=== PATIENT | female | born 1990 | race Caucasian/White ===

== ENCOUNTER 2019-06-06 12:37 | Emergency (ER) | payer BC ==
[2019-06-06] MEDS ORDERED: KETOROLAC TROMETHAMINE INJ/PF 30 MG/1 ML SDV IM ONE (13:21)
--- NOTE | 2019-06-06 13:25 | ER Document Report ---
HPI - HPI Time Seen by Provider: 06/06/19 13:13 Pain Level: 3 Context: Patient is a 29-year-old female who presents to the emergency department with a chief complaint of right ear pain and sore throat. Patient reports she had a sore throat for about 2 days with a runny nose. Patient denies cough, denies fever. Patient reports she has had nausea without vomiting. Patient reports 3 episodes of diarrhea in the past 24 hours. Patient reports she was recently exposed to influenza. Patient also reports having her right day for pierced 3 weeks ago. Patient reports about 1 week ago she developed redness to the site and drainage that is yellow. Patient reports increased redness to the right ear. Patient denies pain inside the ear. Patient also reports a bloody drainage. 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 - CONSTITUTIONAL Constitutional: DENIES: Fever, Chills - REPRODUCTIVE Reproductive: DENIES: : Past Medical History - General Information source: Patient - Social History Smoking Status: Never Smoker Chew tobacco use (# tins/day): No Frequency of alcohol use: None Drug Abuse: None Lives with: Family Family History: None Patient has suicidal ideation: No Patient has homicidal ideation: No - Past Medical History Cardiac Medical History: Reports: None Pulmonary Medical History: Reports: None EENT Medical History: Reports: None Neurological Medical History: Reports: None Endocrine Medical History: Reports: None Renal/ Medical History: Reports: None Malignancy Medical History: Reports: None GI Medical History: Reports: None Musculoskeletal Medical History: Reports None Skin Medical History: Reports None Psychiatric Medical History: Reports: None Traumatic Medical History: Reports: None Infectious Medical History: Reports: None Surgical Hx: Negative Vertical Provider Document - CONSTITUTIONAL Agree With Documented VS: Yes Exam Limitations: No Limitations General Appearance: No Apparent Distress - INFECTION CONTROL TRAVEL OUTSIDE OF THE [place] IN LAST 30 DAYS: No - HEENT HEENT: Atraumatic, Normocephalic, PERRLA Notes: Patient has a right daith pierced. The jewelry is intact. There is a small amount of yellow/bloody drainage on the outside of the piercing. Patient does have some erythema noted to the right external ear. External ear is tender to touch. Bilateral TMs pearly sosa without bulging, effusion, erythema. Tonsils and pharynx slightly erythematous without edema. Uvula is midline. - NECK Neck: Normal Inspection Notes: No cervical lymphadenopathy. - RESPIRATORY Respiratory: Breath Sounds Normal, No Respiratory Distress - CARDIOVASCULAR Cardiovascular: Regular Rate, Regular Rhythm - P - GI/ABDOMEN Gastrointestinal: Abdomen Soft, Abdomen Non-Tender, Normal Bowel Sounds - MUSCULOSKELETAL/EXTREMETIES Musculoskeletal/Extremeties: FROM - NEURO Level of Consciousness: Awake, Alert, Appropriate - DERM Integumentary: Warm, Dry Course - Re-evaluation Re-evalutation: 06/06/19 13:32 Patient's initial vital signs did show tachycardia of 120. I did recheck this in triage and it was 113. Patient nontoxic-appearing in no acute distress. We will give patient medication for her discomfort. Will reevaluate. 06/06/19 15:10 Patient's heart rate has improved to 108. Patient nontoxic-appearing. Will give antibiotic for right external ear infection due to the piercing. Patient given strict return precautions. - Vital Signs Vital signs: Temp Pulse Resp BP Pulse Ox 99.4 F 120 H 16 149/86 H 99 06/06/19 12:46 06/06/19 12:46 06/06/19 12:46 06/06/19 12:46 06/06/19 12:46 Discharge - Discharge Clinical Impression: Sore throat (viral), Infection of right ear Condition: Stable Disposition: HOME, SELF-CARE Additional Instructions: *Today you are seen the emergency department for sore throat. Your influenza and strep test were negative. This could be due to a viral illness. Please continue to push fluids to stay hydrated. Take Tylenol and ibuprofen as needed for pain or fever. Please return the emergency department if you develop any difficulty breathing or swelling to your throat. In regards to the possible infection to your right ear I am placing you on Keflex. This is an oral antibiotic. Please take this as prescribed. Please use warm compresses to the site and continue to clean with the saline. Please monitor the site for worsening redness, increased drainage. Prescriptions: Cephalexin Monohydrate [Keflex 500 mg Capsule] 500 mg PO Q6H 5 Days capsule Forms: Return to Work Referrals: [facility] [Provider Group] - Follow up as needed
[2019-06-06 14:01] LABS: A TYPE INFLUENZA AG NEGATIVE (NEGATIVE); B INFLUENZA AG NEGATIVE (NEGATIVE)
[2019-06-06 15:04] VITALS: BP 132/82
== END 2019-06-06 15:18 | disposition home or self-care (01) ==
LOC: ER 12:37
DX: J02.9 Acute pharyngitis, unspecified (principal); L08.89 Other specified local infections of the skin and subcutaneous tissue; H92.01 Otalgia, right ear
CPT/HCPCS: 99283; 96372; 87070; 87880; 87077; 87804; J1885

== ENCOUNTER 2019-07-25 22:06 | Emergency (ER) | payer BC, MEDICAID ==
--- NOTE | 2019-07-25 23:00 | ER Document Report ---
ED Medical Screen (RME) - General Chief Complaint: Cold Symptoms Stated Complaint: COLD SYMPTOMS,VOMITING Notes: Patient is a 29-year-old white female with no significant past medical history presents to the emergency department the chief complaint of cough for the past 2 days. States is dry in nature. States associated with no other symptoms. Denies any known sick contacts or recent travel. Denies fever, nausea vomiting or diarrhea, chills or night sweats. No shortness of breath. I have treated and performed a rapid initial assessment of this patient. A comprehensive ED assessment and evaluation of the patient, analysis of test results and completion of medical decision making process will be conducted by additional ED providers. PHYSICAL EXAMINATION: GENERAL: Well-appearing, well-nourished and in no acute distress. A&Ox4. Answers questions appropriately. TRAVEL OUTSIDE OF THE [place] IN LAST 30 DAYS: No - Related Data Allergies/Adverse Reactions: No Known Allergies Allergy (Verified 07/25/19 22:55) Past Medical History - Social History Chew tobacco use (# tins/day): No Frequency of alcohol use: None Drug Abuse: None Pulmonary Medical History: Reports: Hx Asthma - as a child Past Surgical History: Reports: Hx Cholecystectomy, Hx Genitourinary Surgery - fallopian tube removed, Hx Tonsillectomy Physical Exam - Vital signs Vitals: Temp Pulse Resp BP Pulse Ox 98.6 F 101 H 18 134/87 H 96 07/25/19 22:36 07/25/19 22:36 07/25/19 22:36 07/25/19 22:36 07/25/19 22:36 Course - Vital Signs Vital signs: Temp Pulse Resp BP Pulse Ox 98.6 F 101 H 18 134/87 H 96 07/25/19 22:36 07/25/19 22:36 07/25/19 22:36 07/25/19 22:36 07/25/19 22:36
--- NOTE | 2019-07-25 23:41 | RADIOLOGY REPORT (SQ) ---
EXAM DESCRIPTION: XR CHEST 2 VIEWS COMPLETED DATE/TME: 07/25/2019 22:59 CLINICAL INDICATION: 39-year-old female with cough. TECHNIQUE: Two-view, PA and lateral projections of the chest were obtained. COMPARISON: None. FINDINGS: Unremarkable cardiac and mediastinal silhouette. Heart size is normal. Opacification of the LEFT lower lobe concerning for consolidation/pneumonia. Low lung volumes otherwise grossly clear without focal opacity, pneumothorax or pleural effusions. The visualized bones are within normal limits. IMPRESSION: Opacification of the LEFT lower lobe concerning for consolidation/pneumonia.
[2019-07-26 00:16] LABS: A TYPE INFLUENZA AG NEGATIVE (NEGATIVE); B INFLUENZA AG NEGATIVE (NEGATIVE)
--- NOTE | 2019-07-26 01:21 | ER Document Report ---
ED General - General Chief Complaint: Cold Symptoms Stated Complaint: COLD SYMPTOMS,VOMITING Time Seen by Provider: 07/26/19 01:20 Mode of Arrival: Ambulatory Information source: Patient Notes: Patient is a 29-year-old female presenting to the emergency department chief complaint of cold/flulike symptoms. Patient states is been ongoing for 2 days. 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 Patient denies fevers or chills no nausea vomiting or diarrhea. Patient has not tried any [id number] medications. Patient is not traveled anywhere recently. TRAVEL OUTSIDE OF THE [place] IN LAST 30 DAYS: No - HPI Onset: Yesterday Onset/Duration: Gradual, Persistent Quality of pain: Achy Severity: Mild Pain Level: 1 Associated symptoms: Nonproductive cough, Sore throat Exacerbated by: Denies Relieved by: Denies Similar symptoms previously: No Recently seen / treated by doctor: No - Related Data Allergies/Adverse Reactions: No Known Allergies Allergy (Verified 07/25/19 22:55) Past Medical History - General Information source: Patient - Social History Smoking Status: Never Smoker Chew tobacco use (# tins/day): No Frequency of alcohol use: None Drug Abuse: None Family History: None Patient has suicidal ideation: No Patient has homicidal ideation: No Pulmonary Medical History: Reports: Hx Asthma - as a child Past Surgical History: Reports: Hx Cholecystectomy, Hx Genitourinary Surgery - fallopian tube removed, Hx Tonsillectomy Review of Systems - Review of Systems Notes: REVIEW OF SYSTEMS: CONSTITUTIONAL : Per HPI EENT: Denies eye, ear, throat, or mouth pain or symptoms. Denies nasal or sinus congestion. CARDIOVASCULAR: Denies chest pain. RESPIRATORY: Per HPI GASTROINTESTINAL: Denies abdominal pain. Denies nausea, vomiting, or diarrhea. Denies constipation. GENITOURINARY: Denies difficulty urinating, painful urination, burning, frequency, or blood in urine. MUSCULOSKELETAL: Denies neck or back pain or joint pain or swelling. SKIN: Denies rash or skin lesions. HEMATOLOGIC : Denies easy bruising or bleeding. NEUROLOGICAL: Denies altered mental status or loss of consciousness. Denies headache. Denies weakness or paralysis or loss of use of either side. Denies problems with gait or speech. Denies sensory or motor loss. PSYCHIATRIC: Denies suicidal or homicidal ideations 10 Systems are negative unless otherwise specified above Physical Exam - Vital signs Vitals: Temp Pulse Resp BP Pulse Ox 98.6 F 101 H 18 134/87 H 96 07/25/19 22:36 07/25/19 22:36 07/25/19 22:36 07/25/19 22:36 07/25/19 22:36 - Notes Notes: PHYSICAL EXAMINATION: GENERAL: Well-appearing, well-nourished and in no acute distress. HEAD: Atraumatic, normocephalic. EYES: Pupils equal round and reactive to light, extraocular movements intact, sclera anicteric, conjunctiva are normal. ENT: nares patent, oropharynx clear without exudates. Minimal erythema to the posterior pharynx moist mucous membranes. NECK: Normal range of motion, supple without lymphadenopathy, no appreciable JVD LUNGS: Lungs clear to auscultation bilaterally and equal. No wheezes rales or rhonchi. HEART: Regular rate and rhythm without murmurs ABDOMEN: Soft, nontender, normal bowel sounds. No guarding, no rebound. No masses appreciated. EXTREMITIES: Active full range of motion, no pitting or edema. No cyanosis. 2+ pulses x4 NEUROLOGICAL: No focal neurological deficits. Moves all extremities spontaneously and on command. SKIN: Warm, Dry, and intact. Normal turgor, no rashes or lesions noted. Course - Re-evaluation Re-evalutation: 07/26/19 01:21 I have reviewed laboratory and radiologic results with the patient. Patient is agreeable with conservative management for cold/viral syndrome. Patient will be given initial dose of guaifenesin in the emergency department and a prescription for same. Patient is discharged home in stable condition. 07/26/19 01:35 - Vital Signs Vital signs: Temp Pulse Resp BP Pulse Ox 98.6 F 101 H 18 134/87 H 96 07/25/19 22:36 07/25/19 22:36 07/25/19 22:36 07/25/19 22:36 07/25/19 22:36 - Diagnostic Test Radiology reviewed: Reports reviewed Discharge - Discharge Clinical Impression: Viral syndrome, Cough Condition: Stable Disposition: HOME, SELF-CARE Instructions: Viral Syndrome ([facility]), Fever ([facility]), Acetaminophen Additional Instructions: Please utilize Tylenol Motrin for fevers aches and pains, take your cough syrup as prescribed. Try increasing your rest and fluids over the next several days. Follow-up with your primary care provider as needed or return to the emergency department for worsening symptoms. Prescriptions: Guaifenesin [Adult Tussin Chest Congestion] 100 mg PO Q4 PRN #120 liquid PRN Reason: Forms: Return to Work
[2019-07-26] MEDS ORDERED: GUAIFENESIN SYRP 200 MG/10 ML UDC PO ONE (01:31)
[2019-07-26 01:48] VITALS: BP 133/73
== END 2019-07-26 01:50 | disposition home or self-care (01) ==
LOC: ER 22:06
DX: B34.9 Viral infection, unspecified (principal); R05 Cough; J02.9 Acute pharyngitis, unspecified
CPT/HCPCS: 71046; 87804; 99283

== ENCOUNTER 2019-07-27 16:17 | Emergency (ER) | payer BC ==
[2019-07-27] MEDS ORDERED: NORMAL SALINE 1000 ML 1,000 ML IV ONE (16:47)
[2019-07-27] MEDS ORDERED: ACETAMINOPHEN 325 MG TABLET PO ONE ×2 (16:47→19:30)
[2019-07-27] MEDS ORDERED: ONDANSETRON 4 MG TAB.RAPDIS PO ONE ×2 (16:47→19:30)
[2019-07-27] MEDS ORDERED: IBUPROFEN 600 MG TABLET PO ONE ×2 (16:47→19:30)
--- NOTE | 2019-07-27 16:50 | ER Document Report ---
ED Medical Screen (RME) - General Chief Complaint: Fever Stated Complaint: NAUSEA/VOMITING/FEVER/COUGH Time Seen by Provider: 07/27/19 16:40 Mode of Arrival: Ambulatory Information source: Patient Notes: 29-year-old female patient presenting to the emergency department with chief complaint of fever, cough, nausea, vomiting and diarrhea. Patient reports she has had 2 episodes of diarrhea in the last 24 hours. She reports at least 4 episodes of vomiting but she states that the vomiting is being caused by her severe cough. Patient has been seen in this emergency department with similar s ymptoms over the last few days, the other day she was here and the x-ray showed a left-sided infiltrate although patient was not started on antibiotics at that time because she did not have a fever. I have greeted and performed a rapid initial assessment of this patient. A comprehensive ED assessment and evaluation of the patient, analysis of test results and completion of the medical decision making process will be conducted by additional ED providers. I have specifically instructed the patient or family members with the patient to immediately return to any nursing staff should anything change in the patient's condition or with their chief complaint. TRAVEL OUTSIDE OF THE [place] IN LAST 30 DAYS: No - Related Data Allergies/Adverse Reactions: No Known Allergies Allergy (Verified 07/27/19 16:37) Past Medical History - Social History Chew tobacco use (# tins/day): No Frequency of alcohol use: None Drug Abuse: None Pulmonary Medical History: Reports: Hx Asthma - as a child Past Surgical History: Reports: Hx Cholecystectomy, Hx Genitourinary Surgery - fallopian tube removed, Hx Tonsillectomy Physical Exam - Vital signs Vitals: Temp Pulse Resp BP Pulse Ox 102.4 F H 134 H 20 136/82 H 95 07/27/19 16:33 07/27/19 16:33 07/27/19 16:33 07/27/19 16:33 07/27/19 16:33 Course - Vital Signs Vital signs: Temp Pulse Resp BP Pulse Ox 102.4 F H 134 H 20 136/82 H 95 07/27/19 16:33 07/27/19 16:33 07/27/19 16:33 07/27/19 16:33 07/27/19 16:33
--- NOTE | 2019-07-27 17:49 | RADIOLOGY REPORT (SQ) ---
EXAM DESCRIPTION: CHEST 2 VIEWS COMPLETED DATE/TIME: 07/27/2019 4:19 pm REASON FOR STUDY: cough/fever COMPARISON: None. EXAM PARAMETERS: NUMBER OF VIEWS: two views TECHNIQUE: Digital Frontal and Lateral radiographic views of the chest acquired. RADIATION DOSE: NA LIMITATIONS: none FINDINGS: LUNGS AND PLEURA: Patchy consolidation in the left lower lung. No pleural effusion or pne umothorax. MEDIASTINUM AND HILAR STRUCTURES: No masses or contour abnormalities. HEART AND VASCULAR STRUCTURES: Heart normal size. No evidence for failure. BONES: No acute findings. HARDWARE: None in the chest. OTHER: No other significant finding. IMPRESSION: Consolidation in the left lower lobe. TECHNICAL DOCUMENTATION: JOB ID: [id number] 2010 [employer]- All Rights Reserved Reading location - IP/workstation name: [email or web address]
[2019-07-27 18:04] LABS: ABSOLUTE EOSINOPHILS # (AUTO) 0.1 10^3/uL (0.0-0.6); ABSOLUTE LYMPHOCYTES (AUTO) 0.9 10^3/uL (0.5-4.7); ABSOLUTE MONOCYTES (AUTO) 0.6 10^3/uL (0.1-1.4); ABSOLUTE NEUT (AUTO) 8.7 10^3/uL (1.7-8.2); BASOPHILS % (AUTO) 0.2 % (0-2); EOSINOPHILS % (AUTO) 0.8 % (0-6); HEMATOCRIT 38.5 % (36.0-47.0); HEMOGLOBIN 13.4 g/dL (12.0-15.5); LYMPHOCYTES % (AUTO) 8.9 % (13-45); MEAN CORPUSCULAR HEMOGLOBIN 27.9 pg (27.0-33.4); MEAN CORPUSCULAR HGB CONC 34.9 g/dL (32.0-36.0); MEAN CORPUSCULAR VOLUME 80 fl (80-97); MONOCYTES % (AUTO) 5.6 % (3-13); PLATELET COUNT 210 10^3/uL (150-450); RED BLOOD COUNT 4.82 10^6/uL (3.72-5.28); RED CELL DISTRIBUTION WIDTH 14.9 % (11.5-14.0); SEGMENTED NEUTROPHILS % (AUTO) 84.5 % (42-78); TOTAL CELLS COUNTED % (AUTO) 100 %; WHITE BLOOD COUNT 10.3 10^3/uL (4.0-10.5)
[2019-07-27 18:19] LABS: ALBUMIN 4.1 g/dL (3.5-5.0); ALKALINE PHOSPHATASE 89 U/L (38-126); ANION GAP 11 (5-19); ASPARTATE AMINO TRANSFERASE 33 U/L (14-36); BILIRUBIN,DIRECT 0.3 mg/dL (0.0-0.4); BILIRUBIN,TOTAL 0.6 mg/dL (0.2-1.3); BLOOD UREA NITROGEN 10 mg/dL (7-20); CALCIUM 8.9 mg/dL (8.4-10.2); CARBON DIOXIDE 22 mmol/L (22-30); CHLORIDE 102 mmol/L (98-107); GLUCOSE 102 mg/dL (75-110); POTASSIUM 3.7 mmol/L (3.6-5.0); TOTAL PROTEIN 7.5 g/dL (6.3-8.2)
[2019-07-27 18:42] LABS: A TYPE INFLUENZA AG NEGATIVE (NEGATIVE); B INFLUENZA AG NEGATIVE (NEGATIVE)
[2019-07-27] MEDS ORDERED: AZITHROMYCIN INJ 500 MG VIAL IV ONE (19:42)
[2019-07-27] MEDS ORDERED: CEFTRIAXONE 1 GM/D5W RTU 1 GM/50 ML RTUPB IV ONE (19:42)
--- NOTE | 2019-07-27 19:49 | ER Document Report ---
ED General - General Chief Complaint: Fever Stated Complaint: NAUSEA/VOMITING/FEVER/COUGH Time Seen by Provider: 07/27/19 16:40 Mode of Arrival: Ambulatory Notes: Patient is a 29-year-old white female with no significant past medical history who presents to the emergency department with a chief complaint of cough and fever. She states this began about 4 days ago as a cough. She states over the past few days it is gradually worsened to now involve fever that began last night. She states widespread body aches, nausea, vomiting and diarrhea. She was seen here a couple days ago and diagnosed with viral syndrome, placed on guaifenesin and Tessalon. She states she is worsening. She denies any recent travel or known sick contacts. TRAVEL OUTSIDE OF THE [place] IN LAST 30 DAYS: No - Related Data Allergies/Adverse Reactions: No Known Allergies Allergy (Verified 07/27/19 16:37) Past Medical History - General Information source: Patient - Social History Smoking Status: Former Smoker Chew tobacco use (# tins/day): No Frequency of alcohol use: None Drug Abuse: None Family History: None Patient has suicidal ideation: No Patient has homicidal ideation: No Pulmonary Medical History: Reports: Hx Asthma - as a child Past Surgical History: Reports: Hx Cholecystectomy, Hx Genitourinary Surgery - fallopian tube removed, Hx Tonsillectomy Review of Systems - Review of Systems Constitutional: Fever Respiratory: Cough Gastrointestinal: Diarrhea, Nausea, Vomiting -: Yes All other systems reviewed and negative Physical Exam - Vital signs Vitals: Temp Pulse Resp BP Pulse Ox 102.4 F H 134 H 20 136/82 H 95 07/27/19 16:33 07/27/19 16:33 07/27/19 16:33 07/27/19 16:33 07/27/19 16:33 - General General appearance: Appears well, Alert In distress: None Notes: Nontoxic in appearance - HEENT Head: Normocephalic, Atraumatic Eyes: Normal Conjunctiva: Normal Extraocular movements intact: Yes Eyelashes: Normal Pupils: PERRL Ears: Normal External canal: Normal Tympanic membrane: Normal Sinus: Normal Nasal: Normal Mouth/Lips: Normal Mucous membranes: Normal Pharynx: Normal Neck: Normal - Respiratory Respiratory status: No respiratory distress Chest status: Nontender Breath sounds: Normal Chest palpation: Normal - Cardiovascular Rhythm: Regular Heart sounds: Normal auscultation Murmur: No - Extremities General upper extremity: Normal inspection, Nontender, Normal color, Normal ROM, Normal temperature General lower extremity: Normal inspection, Nontender, Normal color, Normal ROM, Normal temperature, Normal weight bearing. No: Janeth's sign - Neurological Neuro grossly intact: Yes Cognition: Normal Orientation: AAOx4 Crescent Coma Scale Eye Opening: Spontaneous Jose Eduardo Coma Scale Verbal: Oriented Jose Eduardo Coma Scale Motor: Obeys Commands Jose Eduardo Coma Scale Total: 15 Speech: Normal - Psychological Associated symptoms: Normal affect, Normal mood - Skin Skin Temperature: Warm Skin Moisture: Dry Skin Color: Normal Course - Re-evaluation Re-evalutation: 07/27/19 21:23 Patient reevaluated at this time. She states she is feeling better. Will be tr eated for pneumonia, given Zithromax and Rocephin here. Sent home with Zithromax. She has cough medicine. We discussed hydration and rest. Counseled her at length regarding the importance of outpatient follow-up and advised she return here or any ER immediately with any new, persistent or worsening symptoms. She verbalized understood and agreed. Vital signs improved prior to discharge. - Vital Signs Vital signs: Temp Pulse Resp BP Pulse Ox 99.0 F 104 H 18 134/78 H 97 07/27/19 20:51 07/27/19 20:51 07/27/19 20:51 07/27/19 20:51 07/27/19 20:51 - Laboratory Result Diagrams: 07/27/19 17:40 07/27/19 17:40 Laboratory results interpreted by me: 07/27/19 07/27/19 17:40 17:40 RDW 14.9 H Lymph % (Auto) 8.9 L Absolute Neuts (auto) 8.7 H Seg Neutrophils % 84.5 H Sodium 135.3 L Discharge - Discharge Clinical Impression: Pneumonia Qualifiers: Pneumonia type: due to unspecified organism Laterality: left Lung location: lower lobe of lung Qualified Code(s): J18.9 - Pneumonia, unspecified organism Condition: Stable Disposition: HOME, SELF-CARE Instructions: Pneumonia ([facility]) Additional Instructions: Follow-up with your regular doctor in 2 to 3 days for reevaluation. Return here or any ER immediately with any new, persistent or worsening symptoms. Prescriptions: Azithromycin [Zithromax 250 mg Tablet] 250 mg PO ASDIR #4 tablet Forms: Parent Work Note, Return to Work
[2019-07-27 20:52] VITALS: BP 134/78
== END 2019-07-27 22:37 | disposition home or self-care (01) ==
LOC: ER 16:17
DX: J18.9 Pneumonia, unspecified organism (principal); R50.9 Fever, unspecified; R11.2 Nausea with vomiting, unspecified; R05 Cough; M79.10 Myalgia, unspecified site; R19.7 Diarrhea, unspecified; Z87.891 Personal history of nicotine dependence
CPT/HCPCS: 36415; 87040; 85025; 87077; 80053; 87804; 87150 ×26; 71046; S0119; J7030; J0456; J0696; 96365; 96367; 99283

== ENCOUNTER 2019-12-20 16:24 | Emergency (ER) | payer BC ==
[2019-12-20] MEDS ORDERED: KETOROLAC TROMETHAMINE INJ/PF 30 MG/1 ML SDV IV ONE (18:58)
[2019-12-20] MEDS ORDERED: PROCHLORPERAZINE EDISYLATE INJ 10 MG/2 ML VIAL IV ONE (18:58)
[2019-12-20] MEDS ORDERED: DIPHENHYDRAMINE HCL 50 MG/ML VIAL IV ONE (18:59)
--- NOTE | 2019-12-20 20:55 | ER Document Report ---
ED Headache - General Chief Complaint: Headache Stated Complaint: HEADACHE Time Seen by Provider: 12/20/19 18:30 Primary Care Provider: JENNIFER BROWN FNP-C [Primary Care Provider] - Follow up as needed Mode of Arrival: Ambulatory Information source: Patient Notes: This 29-year-old woman presents to the emergency department with a complaint of headache. States that she has been having a headache for the past week. She is scheduled to see a neurologist this week to have a spinal tap done. She has a history of intracranial hypertension. She had a CT done 2 weeks ago and will be following up. She presents to the emergency department today for treatment of the headache and nausea. She denies neurologic symptoms no weakness, no numbness and no loss of function. TRAVEL OUTSIDE OF THE [place] IN LAST 30 DAYS: No - Related Data Allergies/Adverse Reactions: No Known Allergies Allergy (Verified 07/27/19 16:37) Past Medical History - Social History Smoking Status: Unknown if Ever Smoked Family History: None, Reviewed & Not Pertinent Pulmonary Medical History: Reports: Hx Asthma - as a child Past Surgical History: Reports: Hx Cholecystectomy, Hx Genitourinary Surgery - fallopian tube removed, Hx Tonsillectomy Review of Systems - Review of Systems Notes: Constitutional: Negative for fever. HENT: Negative for sore throat. Eyes: Negative for visual changes. Cardiovascular: Negative for chest pain. Respiratory: Negative for shortness of breath. Gastrointestinal:+ Nausea Genitourinary: Negative for dysuria. Musculoskeletal: Negative for back pain. Skin: Negative for rash. Neurological: + Headaches, no weakness or numbness. 10 point ROS negative except as marked above and in HPI. Physical Exam - Vital signs Vitals: Temp Pulse Resp BP Pulse Ox 98.4 F 101 H 18 133/76 H 100 12/20/19 17:23 12/20/19 17:23 12/20/19 17:23 12/20/19 17:23 12/20/19 17:23 - Notes Notes: PHYSICAL EXAMINATION: Physical Exam: General: Well-nourished well-developed 29-year-old woman in no acute distress/complains of nausea headache HEENT: NC/AT, pupils equal round and reactive to light, MM moist,nares clear, oropharynx clear, airway patent Neck: supple, no adenopathy, no masses. Good range of motion Lungs: clear, no wheezing, no rales no rhonchi CVS: Regular rate and rhythm no murmur gallop or rub Abdomen: Soft, active, nontender, no masses, no hepatosplenomegaly Ext: No edema, clubbing or cyanosis. Neuro: Alert and responsive, moving all 4 extremities on command, cranial nerves intact, no focal findings Skin: Intact no open lesions, no rash PSYCH: Normal mood, normal affect. Course - Re-evaluation Re-evalutation: 12/20/19 21:03 Patient was given Compazine 5 mg IV and Toradol 30 mg IV, she notes that her headache has resolved and the nausea has improved. Patient states that she is ready to go home and will be following up with the neurologist this week. She is given a prescription for promethazine for nausea. - Vital Signs Vital signs: Temp Pulse Resp BP Pulse Ox 98.5 F 87 16 116/72 100 12/20/19 22:05 12/20/19 22:05 12/20/19 22:05 12/20/19 22:05 12/20/19 22:05 Discharge - Discharge Clinical Impression: History of idiopathic intracranial hypertension Headache Qualifiers: Headache type: unspecified Headache chronicity pattern: episodic headache Intractability: not intractable Qualified Code(s): R51 - Headache Condition: Good Disposition: HOME, SELF-CARE Instructions: Antinausea Medication ([facility]), Headache ([facility]), Reglan ([facility]), Toradol Injection ([facility]) Additional Instructions: You were seen in the emergency department today with a history of headaches related to intra-cerebral hypertension. You were given medications for nausea and to help with a headache. A prescription for promethazine is given at discharge. Please follow-up with your neurologist for further evaluation and the spinal tap which was scheduled. HOME CARE INSTRUCTIONS & INFORMATION: Thank you for choosing us for your medical needs. We hope you're satisfied with the care you received. After you leave, you must properly care for your problem and, at the same time, observe its progress. Any condition can change. Some illnesses can change rapidly over hours or days. If your condition worsens, return to the Emergency Department or see your physician promptly. ABOUT YOUR X-RAYS AND EKG'S: If you had an EKG or X-rays taken, they have been read by the Emergency Physician. The X-rays and EKG's will also be read by a Radiologist or Optical Design Engineer within 24 hours. If discrepancies are noted, you will be notified by telephone. Please be certain the ED has a correct telephone number & address where you can be reached. Also, realize that some fractures or abnormalities do not show up on initial X-rays. If your symptoms continue, see your physician. ABOUT YOUR LABORATORY TEST: If you had laboratory tests, the results have been reviewed by the Emergency Physician. Some test results (for example cultures) may not be available for several days. You will be contacted if any test result shows you need additional treatment. Please be certain the ED has a correct telephone number and address where you can be reached. ABOUT YOUR MEDICATIONS: You will receive instructions on how to take your medicine on the prescription label you receive. Additional information may be provided by the Pharmacy. If you have questions afterwards, call the ED for clarification or further instructions. Some prescribed medications may cause drowsiness. Do not perform tasks such as driving a car or operating machinery without consulting your Pharmacist. If you feel you need a refill of pain medication, your condition will need re-evaluation. Please do not call for a refill of any medication. ABOUT YOUR SIGNATURE: Signature of this document acknowledges to followin. Understanding that you received emergency treatment and that you may be released before al medical problems are known or treated. Please be certain the ED has a correct phone number & address where you can be reached. 2. Acknowledgement that you will arrange for follow-up care as recommended. 3. Authorization for the Emergency Physician to provide information to your follow-up Physician in order to maximize your care. AT ANY TIME, IF YOUR SYMPTOMS CHANGE SIGNIFICANTLY OR WORSEN OR YOU DEVELOP NEW SYMPTOMS, RETURN TO THE EMERGENCY DEPARTMENT IMMEDIATELY FOR RE-EVALUATION. OUR GOAL IS TO PROVIDE EXCELLENT MEDICAL CARE! WE HOPE THAT WE HAVE MET YOUR EXPECTATIONS DURING YOUR EMERGENCY DEPARTMENT VISIT AND THAT YOU FEEL YOU HAVE RECEIVED EXCELLENT CARE! Prescriptions: Promethazine HCl [Phenergan 25 mg Tablet] 25 mg PO Q6H PRN #12 tablet PRN Reason: For Nausea/Vomiting Referrals: JENNIFER BROWN, SHERLY-C [Primary Care Provider] - Follow up as needed
[2019-12-20 22:05] VITALS: BP 116/72
== END 2019-12-20 22:05 | disposition home or self-care (01) ==
LOC: ER 16:24
DX: R51 Headache (principal); R11.0 Nausea; Z86.69 Personal history of other diseases of the nervous system and sense organs
CPT/HCPCS: 99283; 96374; 96375; J1200; J1885; J0780

== ENCOUNTER 2020-02-13 20:24 | Emergency (ER) | payer BC, MEDICAID ==
--- NOTE | 2020-02-13 21:06 | EKG REPORT ---
SEVERITY:- NORMAL ECG - SINUS RHYTHM : Confirmed by: Nixon Rojas MD 13-Feb-2020 21:04:51
--- NOTE | 2020-02-13 21:13 | ER Document Report ---
ED Medical Screen (RME) - General Chief Complaint: Chest Pain Stated Complaint: RAPID HEART RATE/CHEST PAIN Time Seen by Provider: 02/13/20 21:04 Primary Care Provider: JENNIFER BROWN FNP-C [Primary Care Provider] - Follow up as needed Mode of Arrival: Ambulatory Information source: Patient Notes: 29-year-old female presented to ED for palpitations. She states her heart beat has been fast off and on for almost a week. She states when she left work today her heart rate was 138. She states she does get chest pain off and on and when she does have chest pain she gets very short of breath. She states she has a watch the checks her pulse and his pulse has been as high as 176 and his weight was 55 during the day today at work. Is alert oriented respirations regular nonlabored speaking in full sentences pulse is about 95 right now. I have greeted and performed a rapid initial assessment of this patient. A comprehensive ED assessment and evaluation of the patient, analysis of test results and completion of medical decision making process will be conducted by an additional ED providers. TRAVEL OUTSIDE OF THE [place] IN LAST 30 DAYS: No - HPI Onset: Other - The last week Onset/Duration: Intermittent Quality of pain: Sharp Associated Symptoms: Chest pain - Palpitations, Shortness of breath - When chest hurts Exacerbated by: Denies Relieved by: Denies Similar symptoms previously: Yes Recently seen / treated by doctor: No - Related Data Allergies/Adverse Reactions: No Known Allergies Allergy (Verified 07/27/19 16:37) Past Medical History - Social History Cigarette use (# per day): No Frequency of alcohol use: None Drug Abuse: None - Past Medical History Cardiac Medical History: Reports: Other - Intracranial hypertension Pulmonary Medical History: Reports: Hx Asthma - as a child EENT Medical History: Reports: None Neurological Medical History: Reports: None Endocrine Medical History: Reports: None Renal/ Medical History: Reports: None Malignancy Medical History: Reports: None GI Medical History: Reports: Hx Gastritis, Hx Gastroesophageal Reflux Disease, Hx Irritable Bowel - Diarrhea Musculoskeltal Medical History: Reports None Skin Medical History: Reports None Psychiatric Medical History: Reports: None Traumatic Medical History: Reports: None Infectious Medical History: Reports: None Past Surgical History: Reports: Hx Adenoidectomy, Hx Cholecystectomy, Hx Genit ourinary Surgery - Bilateral salpingectomy, Hx Tonsillectomy Physical Exam - Vital signs Vitals: Temp Pulse Resp BP Pulse Ox 98.5 F 105 H 18 122/81 98 02/13/20 20:45 02/13/20 20:45 02/13/20 20:45 02/13/20 20:45 02/13/20 20:45 Course - Vital Signs Vital signs: Temp Pulse Resp BP Pulse Ox 98.5 F 105 H 18 122/81 98 02/13/20 20:45 02/13/20 20:45 02/13/20 20:45 02/13/20 20:45 02/13/20 20:45 Doctor's Discharge - Discharge Referrals: JENNIFER BROWN, BUNGHOLE BORER-C [Primary Care Provider] - Follow up as needed
[2020-02-13 21:42] LABS: ABSOLUTE EOSINOPHILS # (AUTO) 0.4 10^3/uL (0.0-0.6); ABSOLUTE LYMPHOCYTES (AUTO) 3.6 10^3/uL (0.5-4.7); ABSOLUTE MONOCYTES (AUTO) 0.7 10^3/uL (0.1-1.4); ABSOLUTE NEUT (AUTO) 7.6 10^3/uL (1.7-8.2); BASOPHILS % (AUTO) 0.3 % (0-2); EOSINOPHILS % (AUTO) 3.1 % (0-6); HEMATOCRIT 42.8 % (36.0-47.0); HEMOGLOBIN 14.2 g/dL (12.0-15.5); LYMPHOCYTES % (AUTO) 29.1 % (13-45); MEAN CORPUSCULAR HEMOGLOBIN 28.4 pg (27.0-33.4); MEAN CORPUSCULAR HGB CONC 33.2 g/dL (32.0-36.0); MEAN CORPUSCULAR VOLUME 85 fl (80-97); MONOCYTES % (AUTO) 5.8 % (3-13); PLATELET COUNT 291 10^3/uL (150-450); RED BLOOD COUNT 5.01 10^6/uL (3.72-5.28); RED CELL DISTRIBUTION WIDTH 15.4 % (11.5-14.0); SEGMENTED NEUTROPHILS % (AUTO) 61.7 % (42-78); TOTAL CELLS COUNTED % (AUTO) 100 %; WHITE BLOOD COUNT 12.3 10^3/uL (4.0-10.5)
[2020-02-13 21:56] LABS: ALBUMIN 4.7 g/dL (3.5-5.0); ALKALINE PHOSPHATASE 67 U/L (38-126); ANION GAP 13 (5-19); ASPARTATE AMINO TRANSFERASE 28 U/L (14-36); BILIRUBIN,DIRECT 0.3 mg/dL (0.0-0.4); BILIRUBIN,TOTAL 0.4 mg/dL (0.2-1.3); BLOOD UREA NITROGEN 9 mg/dL (7-20); CALCIUM 10.1 mg/dL (8.4-10.2); CARBON DIOXIDE 22 mmol/L (22-30); CHLORIDE 107 mmol/L (98-107); CREATINE KINASE 196 U/L (30-135); GLUCOSE 84 mg/dL (75-110); POTASSIUM 3.9 mmol/L (3.6-5.0); TOTAL PROTEIN 7.6 g/dL (6.3-8.2)
--- NOTE | 2020-02-13 21:57 | RADIOLOGY REPORT (SQ) ---
EXAM DESCRIPTION: XR CHEST 2 VIEWS COMPLETED DATE/TME: 02/13/2020 21:09 CLINICAL HISTORY: 29 years, Female, Chest pain, palpitations COMPARISON: None. NUMBER OF VIEWS: TECHNIQUE: LIMITATIONS: None. FINDINGS: No evidence of pulmonary infiltrate or pleural effusion. The heart and mediastinum are unremarkable. Pulmonary vascularity appears normal. IMPRESSION: No acute finding. copyright 2010 [employer]- All Rights Reserved
[2020-02-13 22:13] LABS: FREE T3 4.18 pg/mL (2.77-5.27); FREE T4 (FREE THYROXINE) 0.87 ng/dL (0.78-2.19)
[2020-02-13 22:27] LABS: THYROID STIMULATING HORMONE 5.48 uIU/mL (0.47-4.68)
[2020-02-13 23:46] VITALS: BP 134/82
[2020-02-13] MEDS ORDERED: NORMAL SALINE 1000 ML 1,000 ML IV ONE (23:52)
--- NOTE | 2020-02-14 00:19 | ER Document Report ---
ED General - General Chief Complaint: Chest Pain Stated Complaint: RAPID HEART RATE/CHEST PAIN Time Seen by Provider: 02/13/20 21:04 Primary Care Provider: JENNIFER BROWN FNP-C [Primary Care Provider] - Follow up as needed Mode of Arrival: Ambulatory TRAVEL OUTSIDE OF THE [place] IN LAST 30 DAYS: No - HPI Context: This is a 29-year-old female presenting to the emergency department complaining of rapid heart rate. Patient states that she has been having trouble with a rapid heartbeat on and off for the past 7 days. Patient states that when she finished work today her heart rate had gotten up to 138. Patient states that she does feel some chest discomfort and shortness of breath when her heart rate gets rapid. Patient denies history of heart disease, diabetes, thyroid disorder. Patient states symptoms are worsened with exertion and are better with rest. Patient denies fever, chills. Patient states she is scheduled to have a cardiac cath lab technologist placed on 02/15/2020. Patient denies history of COVID infection, known exposure to COVID positive persons or persons under investigation for COVID. Patient denies stimulant or illicit drug use. Patient denies diaphoresis, nausea, vomiting. Patient states that the chest discomfort is a 3 out of 5 and describes it as sharp and localizes it to her mid chest. Patient states that she does not drink enough water. Associated symptoms: Other - See HPI Exacerbated by: Other - See HPI Relieved by: Other - See HPI - Related Data Allergies/Adverse Reactions: No Known Allergies Allergy (Verified 07/27/19 16:37) Past Medical History - General Information source: Patient - Social History Smoking Status: Unknown if Ever Smoked Cigarette use (# per day): No Frequency of alcohol use: None Drug Abuse: None Family History: None, Reviewed & Not Pertinent Patient has homicidal ideation: No - Past Medical History Cardiac Medical History: Reports: Other - Intracranial hypertension Pulmonary Medical History: Reports: Hx Asthma - as a child EENT Medical History: Reports: None Neurological Medical History: Reports: None Endocrine Medical History: Reports: None Renal/ Medical History: Reports: None Malignancy Medical History: Reports: None GI Medical History: Reports: Hx Gastritis, Hx Gastroesophageal Reflux Disease, Hx Irritable Bowel - Diarrhea Musculoskeletal Medical History: Reports None Skin Medical History: Reports None Psychiatric Medical History: Reports: None Traumatic Medical History: Reports: None Infectious Medical History: Reports: None Past Surgical History: Reports: Hx Adenoidectomy, Hx Cholecystectomy, Hx Genitourinary Surgery - Bilateral salpingectomy, Hx Tonsillectomy Review of Systems - Review of Systems Constitutional: No symptoms reported EENT: No symptoms reported Cardiovascular: Chest pain, Palpitations, Heart racing Respiratory: Short of breath Gastrointestinal: No symptoms reported Genitourinary: No symptoms reported Female Genitourinary: No symptoms reported Musculoskeletal: No symptoms reported Skin: No symptoms reported Hematologic/Lymphatic: No symptoms reported Neurological/Psychological: No symptoms reported -: Yes All other systems reviewed and negative Physical Exam - Vital signs Vitals: Temp Pulse Resp BP Pulse Ox 98.5 F 105 H 18 122/81 98 02/13/20 20:45 02/13/20 20:45 02/13/20 20:45 02/13/20 20:45 02/13/20 20:45 - Notes Notes: CONSTITUTIONAL [Vital signs reviewed, Patient appears comfortable, Alert and oriented X 3, Normal stature.] HEAD [Atraumatic, Normocephalic.] EYES [Eyes are normal to inspection, No discharge from eyes, Extraocular muscles intact, Sclera are normal, Conjunctiva are normal.] NECK [Normal ROM, No jugular venous distention, No meningeal signs, no carotid bruit.] RESPIRATORY CHEST [Chest is nontender, Breath sounds normal, No respiratory distress.] CARDIOVASCULAR [RRR, No murmurs, Normal S1 S2, No rub, No gallop.] ABDOMEN [Abdomen is nontender, No pulsatile masses, No other masses, Bowel sounds normal, No distension, No peritoneal signs, No hernias.] BACK [There is no CVA Tenderness, There is no tenderness to palpation, Normal inspection.] UPPER EXTREMITY [Inspection normal, No cyanosis, No clubbing, No edema, 2+ radial pulses.] LOWER EXTREMITY [Inspection normal, No cyanosis, No clubbing, No edema, No calf tenderness, 2+ femoral pulses.] NEURO [No focal motor deficits, No focal sensory deficits, Speech normal.] SKIN [Skin is warm, Skin is dry, Skin is normal color.] LYMPHATIC [No adenopathy in neck.] PSYCHIATRIC [Normal affect. ] Course - Re-evaluation Re-evalutation: 02/14/20 00:19 Patient's pulse was noted to go from 89 up to 109 when orthostatics were checked. Results of ED MSE discussed with patient. All questions were answered prior to discharge. Emergency signs and symptoms, reasons to return to the emergency department discussed with patient. - Vital Signs Vital signs: Temp Pulse Resp BP Pulse Ox 98.5 F 89 18 134/82 H 98 02/13/20 20:45 02/13/20 23:45 02/13/20 20:45 02/13/20 23:45 02/13/20 20:45 - Laboratory Result Diagrams: 02/13/20 21:25 02/13/20 21:25 Laboratory results interpreted by me: 02/13/20 02/13/20 02/13/20 21:25 21:25 21:25 WBC 12.3 H RDW 15.4 H Creatine Kinase 196 H TSH 5.48 H - Diagnostic Test Radiology reviewed: Reports reviewed - EKG Interpretation by Me Additional EKG results interpreted by me: 02/14/20 00:20 EKG obtained on 02/13/2020 at 2034 hrs. was interpreted by this MD. Findings: Normal sinus rhythm, rate 99, normal axis, AL interval within normal limits, P waves preceding QRS complexes, QRS complexes are narrow, QTC is 437, there are no obvious patterns of ST segment elevation or depression present to suggest acute myocardial ischemia or infarction. There is no prior EKG immediately available for comparison. Impression: Normal sinus rhythm with nonspecific ST segments. Discharge - Discharge Clinical Impression: Dehydration Condition: Stable Disposition: HOME, SELF-CARE Additional Instructions: Return to the Emergency Department without delay if any worse. HOME CARE INSTRUCTIONS & INFORMATION: Thank you for choosing us for your medical needs. We hope you're satisfied with the care you received. After you leave, you must properly care for your problem and, at the same time, observe its progress. Any condition can change. Some illnesses can change rapidly over hours or days. If your condition worsens, return to the Emergency Department or see your physician promptly. ABOUT YOUR X-RAYS AND EKG'S: If you had an EKG or X-rays taken, they have been read by the Emergency Physician. The X-rays and EKG's will also be read by a Radiologist or Supervisor Printing And Stamping within 24 hours. If discrepancies are noted, you will be notified by telephone. Please be certain the ED has a correct telephone number & address where you can be reached. Also, realize that some fractures or abnormalities do not show up on initial X-rays. If your symptoms continue, see your physician. ABOUT YOUR LABORATORY TEST: If you had laboratory tests, the results have been reviewed by the Emergency Physician. Some test results (for example cultures) may not be available for several days. You will be contacted if any test result shows you need additional treatment. Please be certain the ED has a correct telephone number and address where you can be reached. ABOUT YOUR MEDICATIONS: You will receive instructions on how to take your medicine on the prescription label you receive. Additional information may be provided by the Pharmacy. If you have questions afterwards, call the ED for clarification or further instructions. Some prescribed medications may cause drowsiness. Do not perform tasks such as driving a car or operating machinery without consulting your Pharmacist. If you feel you need a refill of pain medication, your condition will need re-evaluation. Please do not call for a refill of any medication. ABOUT YOUR SIGNATURE: Signature of this document acknowledges to followin. Understanding that you received emergency treatment and that you may be released before al medical problems are known or treated. Please be certain the ED has a correct phone number & address where you can be reached. 2. Acknowledgement that you will arrange for follow-up care as recommended. 3. Authorization for the Emergency Physician to provide information to your follow-up Physician in order to maximize your care. AT ANY TIME, IF YOUR SYMPTOMS CHANGE SIGNIFICANTLY OR WORSEN OR YOU DEVELOP NEW SYMPTOMS, RETURN TO THE EMERGENCY DEPARTMENT IMMEDIATELY FOR RE-EVALUATION. OUR GOAL IS TO PROVIDE EXCELLENT MEDICAL CARE! WE HOPE THAT WE HAVE MET YOUR EXPECTATIONS DURING YOUR EMERGENCY DEPARTMENT VISIT AND THAT YOU FEEL YOU HAVE RECEIVED EXCELLENT CARE! Dehydration Dehydration can result from vomiting or diarrhea, fever, or decreased intake of fluids. If severe, hospitalization and intravenous fluids may be required. Most cases are treated at home with fluids by mouth. For the next 24 hours, drink lots of clear fluids. In mild cases, this can be soda pop or sports drinks. For more severe dehydration, the doctor may recommend special fluids such as Pedialyte or Lytren. Try to get three liters (3 quarts) of fluid per day. If vomiting occurs, continue to drink the fluids frequently (every 15 to 20 minutes), but in small amounts (one or two ounces). Depending on the type of dehydration, the doctor may prescribe antinausea medicine or potassium replacements. Call the doctor or return for re-examination if you become progressively weak, vomit repeatedly, or have other new symptoms. Forms: Return to Work Referrals: JENNIFER BROWN FNP-[place] [Primary Care Provider] - Follow up as needed
== END 2020-02-14 01:40 | disposition home or self-care (01) ==
LOC: ER 20:24
DX: E86.0 Dehydration (principal); R00.0 Tachycardia, unspecified; R07.9 Chest pain, unspecified; R06.02 Shortness of breath; R00.2 Palpitations
CPT/HCPCS: 93005; 99285; 96360; 36415; 84439; 82550; 83735; 84443; 85025; 80053; 84484; 84481; 71046; 93010; J7030